=== PATIENT | male | born 1960 | race African-American/Black ===

== ENCOUNTER 2020-09-26 16:33 | Emergency (ER) | payer OTHER ==
[~2020-09-26] VITALS: Ht 172.7 cm; Wt 95.0 kg
[2020-09-26] MEDS ORDERED: KETOROLAC 60 MG/2 ML VIAL. IM ONE (16:45)
[2020-09-26] MEDS: METHOCARBAMOL 750 MG TABLET PO ONE ×2 (16:45→17:21)
[2020-09-26 16:49] VITALS: BP 167/98
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
[2020-09-26] MEDS ORDERED: TIZA4TAB8 PO (17:37)
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
== END 2020-09-26 17:50 | disposition home or self-care (01) ==
LOC: ER 16:33
DX: S16.1XXA Strain of muscle, fascia and tendon at neck level, initial encounter (principal); M54.5 Low back pain; G89.29 Other chronic pain; E11.9 Type 2 diabetes mellitus without complications; I10 Essential (primary) hypertension; Z98.890 Other specified postprocedural states; V59.9XXA Occupant (driver) (passenger) of pick-up truck or van injured in unspecified traffic accident, initial encounter; Y93.89 Activity, other specified; Y92.413 State road as the place of occurrence of the external cause; Y99.8 Other external cause status
CPT/HCPCS: 72125; 72131; 96372; 99285; J1885